=== PATIENT | male | born 1975 | race Asian ===

== ENCOUNTER 2019-09-04 20:25 | Emergency (ER) | payer OTHER ==
[~2019-09-04] VITALS: Ht 167.6 cm; Wt 110.4 kg
[2019-09-04 20:29] VITALS: Ht 167.6 cm; Wt 110.4 kg
[2019-09-05 00:53] VITALS: BP 173/95
== END 2019-09-05 00:53 | disposition home or self-care (01) ==
LOC: ED 20:25
DX: J98.01 Acute bronchospasm (principal); I10 Essential (primary) hypertension; M79.10 Myalgia, unspecified site
CPT/HCPCS: 87804; J7512; J7613